=== PATIENT | male | born 1990 | race Caucasian/White ===

== ENCOUNTER → 2020-12-04 | Day surgery (SDC) | payer BC, OTHER ==
[~2020-12-04] MED LIST: COLACE100 MG PO; HYDROCODON-ACE1 EAC2 PO
== END | disposition home or self-care (01) ==
LOC: OR 07:45
DX: K42.9 Umbilical hernia without obstruction or gangrene (principal); Z20.822 Contact with and (suspected) exposure to COVID-19
CPT/HCPCS: J0690; J1100; J1170; J1885; J2001; J2250; J2405; J2704; J3010; J7120